=== PATIENT | male | born 1950 | race Caucasian/White ===

== ENCOUNTER 2016-09-18 17:27 | Observation (INO) | payer OTHER ==
[~2016-09-18] VITALS: Ht 167.6 cm; Wt 118.0 kg
--- NOTE | 2016-09-18 19:22 | DIAGNOSTIC IMAGING REPORT ---
PROCEDURE: XR CHEST 1 VIEW INDICATION: CHEST PAIN, initial encounter TECHNIQUE: Portable AP view 07:07 p.m. COMPARISON: Chest x-ray 10/05/2014 FINDINGS: Lungs are clear. Heart and mediastinum are normal. Thorax is normal. No significant interval change. IMPRESSION: 1. Negative chest.
--- NOTE | 2016-09-18 21:19 | ED NURSING NOTES ---
Clinical Report - Nurses [facility] [address] [place] [address] 09/18/2016 17:30 Patient: FRANDY MOROCHO TRIAGE Triage time 17:33. Acuity: LEVEL 3. Chief Complaint: CHEST PAIN and (and left arm numbness). Alert. --17:37 Frank Dinh R.N. 17:32 09/18/16. HR: 111. RR: 20. O2 saturation: 98%. Pain level now: 04/17. --17:37 Frank Dinh R.N. 17:50 09/18/16. BP: 155/87. --17:52 Frank Dinh R.N. Weight: 122.4 kg stated. Height/Length: 66 inches Per Patient. BMI: 43.6. --17:32 Frank Dinh R.N. Medications Albuterol Sulfate Inhalation neb, 4xdaily. AmLODIPine Besylate Oral (Tablet 10 mg) 1 tablet, daily. Aspirin Oral (Tablet 325 mg) 1 tablet, daily. Atorvastatin Calcium Oral (Tablet 40 mg) 1 tablet, daily. Cialis Oral, as needed. Combivent Inhalation 2 puffs, daily. Fluoxetine HCl Oral 60mg, daily. --17:57 Frank Dinh R.N. HydrALAZINE HCl Oral (Tablet 10 mg) 1 tablet, 2xdaily. Hydrochlorothiazide Oral 25 mg, daily. Iisinopril 40mg, daily. Levemir Subcutaneous 50units, 2xdaily. Levothyroxine Sodium Oral (Tablet 100 mcg) 1 tablet, daily. Multivitamins Oral. NovoLOG Subcutaneous, 3xdaily (sliding scale). Onasi, daily. Symbicort Inhalation, 2xdaily. --17:57 Frank Dinh R.N. Allergies No Known Drug Allergy. --17:33 Frank Dinh R.N. NKDA. --17:57 Frank Dinh R.N. History Primary physician (Bert). Onset. (1 hour ago). ( pain is sharp stabbing in chest). PAST MEDICAL HX: Diabetes mellitus. Hypertension. Asthma. SOCIAL HX: Former smoker, end date 1999. Alcohol use; consumes six beers a week. No drug use. FALL RISK ASSESSMENT: Fall risk assessment completed. No fall risk identified. LEARNING NEEDS ASSESSMENT: The learning needs assessment revealed no barriers. --17:37 Frank Dinh R.N. ( Patient with history of asthma, DM and Hypertension. States sharp stabbing pain in left chest began 1 hour ago associated with tingling in left arm and the feeling that his heart was racing. States pain was 8/10 (still is). Patient placed on O2 at 2 and all monitors applied. IV SL started in left arm and blood sent for lab studies). --18:00 Frank Dinh R.N. Interventions ID band on patient. To room. --17:37 Frank Dinh R.N. PHYSICAL ASSESSMENT 17:37 09/18/16. Patient gowned. GENERAL / NEURO / PSYCH: Alert. Oriented X 4. RESPIRATORY: Respirations not labored. --17:37 Frank Dinh R.N. Ambulatory to room. Patient gowned. GENERAL / NEURO / PSYCH: Alert. Oriented X 4. Appears in no acute distress. RESPIRATORY: Respirations not labored. Chest wall tenderness. Breath sounds within normal limits. CVS: Cardiac rhythm: sinus tachycardia. GI / : Abdomen soft and nontender. EXTREMITIES: No lower extremity edema. SKIN: Skin is warm and dry. --18:01 Frank Dinh R.N. NURSING PROGRESS NOTES EKG time: (1740). EKG was ordered, performed by a tech and shown to the ED physician. --17:50 Ibis Rajan ER Tech1 17:51 09/18/2016 Site #1 started via IV in the left forearm with an 20g angiocath; one attempt. Blood drawn: rainbow set. Labeled in the presence of the patient and sent to the lab. Saline lock flushed with 10 mL saline. --18:02 Frank Dinh R.N. Two patient identifiers checked. Call light placed in reach. Bed placed in lowest position. Patient ready for evaluation- chart flagged. --18:02 Frank Dinh R.N. Cardiac rhythm: sinus tachycardia. --18:40 Frank Dinh R.N. 18:39 09/18/16. BP: 128/62. HR: 100. RR: 17. O2 saturation: 98%. Pain level now 12/16. --18:40 Frank Dinh R.N. Care transferred and report given. --19:19 Frank Dinh R.N. 19:45 09/18/16. BP: 127/67. HR: 101. RR: 18. O2 saturation: 99%. Pain level now: 0. --19:46 Ector Cifuentes R.N. 20:16 09/18/2016 Aspirin PO 325 mg given. Allergies verified and confirmed 5 rights. --20:16 Mindy Recio R.N. ( [place], lights turned down.). --20:21 Mindy Recio R.N. 21:15 09/18/16. BP: 157/76. HR: 94. RR: 16. O2 saturation: 95%. --21:19 Ector Cifuentes R.N. DISPOSITION / DISCHARGE 22:09/18/16. BP: 178/99. HR: 103. RR: 16. O2 saturation: 99% on nasal cannula at 2 liters/minute. Pain level now: 0. --22:12 Ector Cifuentes R.N. Departure time: 2209. --22:15 Ector Cifuentes R.N. <<STRICKEN ENTRY-- 22:05 09/18/16. BP: 178/99. HR: 101. RR: 18. O2 saturation: 95% on nasal cannula at 2 liters/minute. Temp: 98.8 F (oral). Pain level now: 0. --03:14 Ector Cifuentes R.N. --END STRIKE>> Correction. --03:15 Ector Cifuentes R.N. 22:10. Admitted to Acute Care. Transported via stretcher by nurse with O2 (IV access). Patient's personal items; items were placed in belongings bag and transported with the patient. --03:16 Ector Cifuentes R.N. 22:09/18/16. Temp: 98.8 F (oral). --03:18 Ector Cifuentes R.N. Locked/Released at 09/19/2016 3:18 by Ector Cifuentes R.N.
--- NOTE | 2016-09-18 21:19 | ED CLINICAL REPORT ---
Clinical Report - Physicians/Mid Levels [facility] [address] [place] [address] 09/18/2016 17:30 Patient: FRANDY MOROCHO Time Seen: 17:37; initial patient contact. Arrived- By private vehicle. HISTORY OF PRESENT ILLNESS Chief Complaint: CHEST PAIN. At its maximum, severity described as moderate. When seen in the E.D., severity described as moderate. This started just prior to arrival and is still present. Onset during rest. It is described as pressure and it is described as located in the central chest area and radiating to the left arm. No nausea, vomiting, difficulty breathing or diaphoresis. Similar symptoms previously: None. Recent medical care: Not recently seen/assessed. REVIEW OF SYSTEMS No fever, chills, cough, pedal edema or calf pain. All systems otherwise negative, except as recorded above. PAST HISTORY Diabetes mellitus. Hypertension. Asthma. Immunizations: up-to-date. SURGERY HX: Adenoidectomy. Carpal tunnel surgery. Tonsillectomy. Vasectomy. (cyst removal from knee).. Medications: HydrALAZINE HCl Oral (Tablet 10 mg) 1 tablet, 2xdaily. Hydrochlorothiazide Oral 25 mg, daily. Iisinopril 40mg, daily. Levemir Subcutaneous 50units, 2xdaily. Levothyroxine Sodium Oral (Tablet 100 mcg) 1 tablet, daily. Multivitamins Oral. NovoLOG Subcutaneous, 3xdaily (sliding scale). Onasi, daily. Symbicort Inhalation, 2xdaily. Albuterol Sulfate Inhalation neb, 4xdaily. AmLODIPine Besylate Oral (Tablet 10 mg) 1 tablet, daily. Aspirin Oral (Tablet 325 mg) 1 tablet, daily. Atorvastatin Calcium Oral (Tablet 40 mg) 1 tablet, daily. Cialis Oral, as needed. Combivent Inhalation 2 puffs, daily. Fluoxetine HCl Oral 60mg, daily. Allergies: NKDA. No Known Drug Allergy. SOCIAL HISTORY Former smoker. Occasional alcohol use. No drug use. ADDITIONAL NOTES The nursing notes have been reviewed with agreement regarding the chief complaint, PMH and patient medications and allergies. PHYSICAL EXAM Vital Signs: 09/18/2016 17:50 BP: 155/87. 09/18/2016 17:32 HR: 111. RR: 20. O2 saturation: 98%. Pain level now: 04/17. Have been reviewed. Hypertensive. Tachycardic. Respiratory rate normal. Temperature normal. Oxygen saturation normal. Appearance: Alert. Oriented X3. No acute distress. Eyes: Eyes normal inspection. ENT: Pharynx normal. Neck: Normal inspection. No JVD. CVS: Normal heart rate and rhythm. Heart sounds normal. Respiratory: No respiratory distress. Breath sounds normal. Abdomen: Soft and nontender. Bowel sounds normal. Skin: Skin warm and dry. Normal skin color. Extremities: No calf tenderness. No lower extremity edema. Neuro: Oriented X 3. LABS, X-RAYS, AND EKG EKG: EKG time: (1737). Narrow-complex tachycardia (ventricular rate 113). Sinus tachycardia. Normal P waves. Normal CASIE. Normal QRS complex. 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 Normal ST and T waves. Prolonged QTc (477). EKG unchanged when compared with prior EKG. 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 The study has been interpreted contemporaneously by me. The study has been independently viewed by me. The EKG appears to be a good tracing. Interpretation time: 1737. Chest X-ray: No acute disease. Normal lung markings present. No infiltrate. Views: AP. Technique: good. The X-rays were independently viewed by me and interpreted contemporaneously by me. Interpretation time: 1914. Laboratory Tests: CBC w Diff: (MANJEET: 09/18/2016 17:45) ( MsgRcvd 09/18/2016 19:12) Final results Test Result Flag Units (Reference) WHITE BLOOD COUNT 5.6 K/uL (4.5-11.5) RED BLOOD COUNT 4.44 L M/uL (4.50-5.90) HEMOGLOBIN 14.1 gm/dL (13.5-17.5) HEMATOCRIT 42.3 % (41.0-53.0) MEAN CELL VOLUME 95 fL (80-100) MEAN CORPUSCULAR HGB 32 pg (26-34) MEAN CORPUSCULAR HGB CONC 33 g/dL (31-37) RED CELL DISTRIBUTION WIDTH 12.6 % (11.6-14.8) PLATELET COUNT 165 K/uL (150-400) NEUTROPHIL % 53.8 % (50-75) LYMPH % 31.4 % (25-40) MONO % 7.3 % (3-14) EOSINOPHIL % 6.9 H % (0-4) BASOPHIL % 0.6 % (0-2) [id number]: (MANJEET: 09/18/2016 17:45) ( [facility] 09/18/[place] 19:45) Final results Test Result Flag Units (Reference) D-DIMER QUANTITATIVE 0.31 ug/mLFEU (0.27-0.52) The primary value of this quantitative assay relates toits negative predictive value (i.e. exclusion) of pulmonaryembolism/deep vein thrombosis/DIC.Elevated levels of d-dimer may also occur with:, age, cancer, inflammation, liver disease,post-op, infection, hematoma, coronary disease, peripheralarteriopathy, bleeding disorders and thrombolytic treatment.Results should be correlated with other clinical andradiological data.Testing Methodology: Latex Immunoassay BNP: (MANJEET: 09/18/2016 17:45) ( [facility] [place] 09/18/2016 19:37) Final results Test Result Flag Units (Reference) B-TYPE NATRIURETIC PEPTIDE 32.9 pg/ml (5-100) CHEM 13 PANEL: (MANJEET: 09/18/2016 17:45) ( [facility] [place] 09/18/2016 19:39) Final results Test Result Flag Units (Reference) GLUCOSE 208 H mg/dL (70-110) BUN 15 mg/dL (7-18) CREATININE 1.3 mg/dL (0.6-1.3) Estimated GFR 58.52 mL/min Estimated GFR- >60 mL/min Note: Persistent reduction over 3 months in eGFR<60 mL/min/1.73 m2 defines CKD. Patients with eGFR values>=60 mL/min/1.73 m2 may also have CKD if evidence ofpersistent proteinuria. Additional information may be foundat www.kidney.org. SODIUM 144 mmol/L (136-145) POTASSIUM 3.3 L mmol/L (3.5-5.1) CHLORIDE 106 mmol/L (98-107) CARBON DIOXIDE 30 mmol/L (21-32) CALCIUM 8.7 mg/dL (8.5-10.1) TOTAL PROTEIN 7.1 g/dL (6.4-8.2) ALBUMIN 3.5 g/dL (3.3-5.0) BILIRUBIN, TOTAL 0.7 mg/dL (0.0-1.0) ALKALINE PHOSPHATASE 80 U/L (46-116) AST (SGOT) 44 H U/L (15-37) ALT (SGPT) 69 U/L (12-78) CPK 338 H U/L (24-260) MAGNESIUM 1.7 L mg/dL (1.8-2.4) CK-MB 4.7 H ng/mL (0.5-3.2) %CKMB 1.4 % (0.0-4.0) TROPONIN I <0.05 ng/mL (0.00-1.5) TROPONIN REFERENCE RANGE:<0.1 NEGATIVE0.1-1.5 INDETERMINANT>1.5 POSITIVE . PROGRESS AND PROCEDURES Course of Care: 09/18/2016 21:15 BP: 157/76. HR: 94. RR: 16. O2 saturation: 95%. Vital Signs: have been reviewed. Hypertensive. Heart rate normal. Respiratory rate normal. Oxygen saturation normal. Discussed case with hospitalist, (call returned 21:[address] in obs to r/o.). Reviewed test results and need for additional work-up. Health care provider will see patient in hospital. Consult obtained from cardiology. call returned 21:05 Dr. Wolf, pt can be observed and ruled out, no need for stress test in hospital, can be done as an outpt if neg w/u. Observation orders written. Disposition: Observation in Acute Care. Condition: stable. CLINICAL IMPRESSION Precordial chest pain characterized as "tightness" .12 lead EKG performed. Uncontrolled essential hypertension. INSTRUCTIONS Follow-up: Blood pressure screening was not performed during this visit because the patient has an active diagnosis of hypertension. The patient was admitted and blood pressure will be managed during the admission. (Electronically signed by Rell Alan Dr. 09/18/2016 21:25)
--- NOTE | 2016-09-18 21:19 | ED ORDER SUMMARY ---
..... Patient: FRANDY MOROCHO OrderSheet [facility] VisitID: [id number] [place] [address] 66y, M Registration Date/Time: 09/18/2016 ORDER SHEET Weight: 122.4 kg (stated) Allergies: No Known Drug Allergy, NKDA GENERAL ORDERS: Chest 1V Urgent (18:59 09/18/2016 Stephane Hardy) (Ack 19:01 NHouse ER Tech1) (19:15 MCampbell) Cardiac Panel Stat (19:00 09/18/2016 Stephane Hardy) (Ack 19:01 NHouse ER Tech1) (19:59 NHouse ER Tech1) BNP Urgent (19:00 09/18/2016 Stephane Hardy) (Ack 19:01 NHouse ER Tech1) (19:59 NHouse ER Tech1) D-Dimer Urgent (19:00 09/18/2016 Stephane Hardy) (Ack 19:01 NHouse ER Tech1) (19:59 NHouse ER Tech1) MEDICATION ORDERS: Aspirin PO 325 mg (Do not crush or chew, NOW) (18:59 09/18/2016 Stephane Hardy) (20:16 Bryn Palumbo.Elaine) IV FLUIDS: IV Saline Lock (19:00 09/18/2016 Stephane Hardy) (20:16 Bryn Palumbo.Elaine) ORDER SHEET NOTES: [Electronically signed by Rell Alan Dr. (21:25 09/18/2016)] [Electronically signed by Ector Cifuentes R.N. (03:18 09/19/2016)] [Electronically locked/signed by Ector Cifuentes R.N. (03:18 09/19/2016)]
--- NOTE | 2016-09-18 21:19 | ED CLINICAL REPORT ---
Clinical Report - Physicians/Mid Levels [facility] [address] [place] [address] 09/18/2016 17:30 Patient: FRANDY MOROCHO Time Seen: 17:37; initial patient contact. Arrived- By private vehicle. HISTORY OF PRESENT ILLNESS Chief Complaint: CHEST PAIN. At its maximum, severity described as moderate. When seen in the E.D., severity described as moderate. This started just prior to arrival and is still present. Onset during rest. It is described as pressure and it is described as located in the central chest area and radiating to the left arm. No nausea, vomiting, difficulty breathing or diaphoresis. Similar symptoms previously: None. Recent medical care: Not recently seen/assessed. REVIEW OF SYSTEMS No fever, chills, cough, pedal edema or calf pain. All systems otherwise negative, except as recorded above. PAST HISTORY Diabetes mellitus. Hypertension. Asthma. Immunizations: up-to-date. SURGERY HX: Adenoidectomy. Carpal tunnel surgery. Tonsillectomy. Vasectomy. (cyst removal from knee).. Medications: HydrALAZINE HCl Oral (Tablet 10 mg) 1 tablet, 2xdaily. Hydrochlorothiazide Oral 25 mg, daily. Iisinopril 40mg, daily. Levemir Subcutaneous 50units, 2xdaily. Levothyroxine Sodium Oral (Tablet 100 mcg) 1 tablet, daily. Multivitamins Oral. NovoLOG Subcutaneous, 3xdaily (sliding scale). Onasi, daily. Symbicort Inhalation, 2xdaily. Albuterol Sulfate Inhalation neb, 4xdaily. AmLODIPine Besylate Oral (Tablet 10 mg) 1 tablet, daily. Aspirin Oral (Tablet 325 mg) 1 tablet, daily. Atorvastatin Calcium Oral (Tablet 40 mg) 1 tablet, daily. Cialis Oral, as needed. Combivent Inhalation 2 puffs, daily. Fluoxetine HCl Oral 60mg, daily. Allergies: NKDA. No Known Drug Allergy. SOCIAL HISTORY Former smoker. Occasional alcohol use. No drug use. ADDITIONAL NOTES The nursing notes have been reviewed with agreement regarding the chief complaint, PMH and patient medications and allergies. PHYSICAL EXAM Vital Signs: 09/18/2016 17:50 BP: 155/87. 09/18/2016 17:32 HR: 111. RR: 20. O2 saturation: 98%. Pain level now: 04/17. Have been reviewed. Hypertensive. Tachycardic. Respiratory rate normal. Temperature normal. Oxygen saturation normal. Appearance: Alert. Oriented X3. No acute distress. Eyes: Eyes normal inspection. ENT: Pharynx normal. Neck: Normal inspection. No JVD. CVS: Normal heart rate and rhythm. Heart sounds normal. Respiratory: No respiratory distress. Breath sounds normal. Abdomen: Soft and nontender. Bowel sounds normal. Skin: Skin warm and dry. Normal skin color. Extremities: No calf tenderness. No lower extremity edema. Neuro: Oriented X 3. LABS, X-RAYS, AND EKG EKG: EKG time: (1737). Narrow-complex tachycardia (ventricular rate 113). Sinus tachycardia. Normal P waves. Normal CASIE. Normal QRS complex. 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 Normal ST and T waves. Prolonged QTc (477). EKG unchanged when compared with prior EKG. 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 The study has been interpreted contemporaneously by me. The study has been independently viewed by me. The EKG appears to be a good tracing. Interpretation time: 1737. Chest X-ray: No acute disease. Normal lung markings present. No infiltrate. Views: AP. Technique: good. The X-rays were independently viewed by me and interpreted contemporaneously by me. Interpretation time: 1914. Laboratory Tests: CBC w Diff: (MANJEET: 09/18/2016 17:45) ( MsgRcvd 09/18/2016 19:12) Final results Test Result Flag Units (Reference) WHITE BLOOD COUNT 5.6 K/uL (4.5-11.5) RED BLOOD COUNT 4.44 L M/uL (4.50-5.90) HEMOGLOBIN 14.1 gm/dL (13.5-17.5) HEMATOCRIT 42.3 % (41.0-53.0) MEAN CELL VOLUME 95 fL (80-100) MEAN CORPUSCULAR HGB 32 pg (26-34) MEAN CORPUSCULAR HGB CONC 33 g/dL (31-37) RED CELL DISTRIBUTION WIDTH 12.6 % (11.6-14.8) PLATELET COUNT 165 K/uL (150-400) NEUTROPHIL % 53.8 % (50-75) LYMPH % 31.4 % (25-40) MONO % 7.3 % (3-14) EOSINOPHIL % 6.9 H % (0-4) BASOPHIL % 0.6 % (0-2) [id number]: (MANJEET: 09/18/2016 17:45) ( [facility] [place]/18[facility] 19:45) Final results Test Result Flag Units (Reference) D-DIMER QUANTITATIVE 0.31 ug/mLFEU (0.27-0.52) The primary value of this quantitative assay relates toits negative predictive value (i.e. exclusion) of pulmonaryembolism/deep vein thrombosis/DIC.Elevated levels of d-dimer may also occur with:, age, cancer, inflammation, liver disease,post-op, infection, hematoma, coronary disease, peripheralarteriopathy, bleeding disorders and thrombolytic treatment.Results should be correlated with other clinical andradiological data.Testing Methodology: Latex Immunoassay BNP: (MANJEET: 09/18/2016 17:45) ( [facility] 09/18/2016 19:37) Final results Test Result Flag Units (Reference) B-TYPE NATRIURETIC PEPTIDE 32.9 pg/ml (5-100) CHEM 13 PANEL: (MANJEET: 09/18/2016 17:45) ( [facility] 09/18/2016 19:39) Final results Test Result Flag Units (Reference) GLUCOSE 208 H mg/dL (70-110) BUN 15 mg/dL (7-18) CREATININE 1.3 mg/dL (0.6-1.3) Estimated GFR 58.52 mL/min Estimated GFR- >60 mL/min Note: Persistent reduction over 3 months in eGFR<60 mL/min/1.73 m2 defines CKD. Patients with eGFR values>=60 mL/min/1.73 m2 may also have CKD if evidence ofpersistent proteinuria. Additional information may be foundat www.kidney.org. SODIUM 144 mmol/L (136-145) POTASSIUM 3.3 L mmol/L (3.5-5.1) CHLORIDE 106 mmol/L (98-107) CARBON DIOXIDE 30 mmol/L (21-32) CALCIUM 8.7 mg/dL (8.5-10.1) TOTAL PROTEIN 7.1 g/dL (6.4-8.2) ALBUMIN 3.5 g/dL (3.3-5.0) BILIRUBIN, TOTAL 0.7 mg/dL (0.0-1.0) ALKALINE PHOSPHATASE 80 U/L (46-116) AST (SGOT) 44 H U/L (15-37) ALT (SGPT) 69 U/L (12-78) CPK 338 H U/L (24-260) MAGNESIUM 1.7 L mg/dL (1.8-2.4) CK-MB 4.7 H ng/mL (0.5-3.2) %CKMB 1.4 % (0.0-4.0) TROPONIN I <0.05 ng/mL (0.00-1.5) TROPONIN REFERENCE RANGE:<0.1 NEGATIVE0.1-1.5 INDETERMINANT>1.5 POSITIVE . PROGRESS AND PROCEDURES Course of Care: 09/18/2016 21:15 BP: 157/76. HR: 94. RR: 16. O2 saturation: 95%. Vital Signs: have been reviewed. Hypertensive. Heart rate normal. Respiratory rate normal. Oxygen saturation normal. Discussed case with hospitalist, (call returned 21:[address] in obs to r/o.). Reviewed test results and need for additional work-up. Health care provider will see patient in hospital. Consult obtained from cardiology. call returned 21:05 Dr. Wolf, pt can be observed and ruled out, no need for stress test in hospital, can be done as an outpt if neg w/u. Observation orders written. Disposition: Observation in Acute Care. Condition: stable. CLINICAL IMPRESSION Precordial chest pain characterized as "tightness" .12 lead EKG performed. Uncontrolled essential hypertension. INSTRUCTIONS Follow-up: Blood pressure screening was not performed during this visit because the patient has an active diagnosis of hypertension. The patient was admitted and blood pressure will be managed during the admission. (Electronically signed by Rell Alan Dr. 09/18/2016 21:25)
--- NOTE | 2016-09-18 21:19 | ED NURSING NOTES ---
Clinical Report - Nurses [facility] [address] [place] [address] 09/18/2016 17:30 Patient: FRANDY MOROCHO TRIAGE Triage time 17:33. Acuity: LEVEL 3. Chief Complaint: CHEST PAIN and (and left arm numbness). Alert. --17:37 Frank Dinh R.N. 17:32 09/18/16. HR: 111. RR: 20. O2 saturation: 98%. Pain level now: 04/17. --17:37 Frank Dinh R.N. 17:50 09/18/16. BP: 155/87. --17:52 Frank Dinh R.N. Weight: 122.4 kg stated. Height/Length: 66 inches Per Patient. BMI: 43.6. --17:32 Frank Dinh R.N. Medications Albuterol Sulfate Inhalation neb, 4xdaily. AmLODIPine Besylate Oral (Tablet 10 mg) 1 tablet, daily. Aspirin Oral (Tablet 325 mg) 1 tablet, daily. Atorvastatin Calcium Oral (Tablet 40 mg) 1 tablet, daily. Cialis Oral, as needed. Combivent Inhalation 2 puffs, daily. Fluoxetine HCl Oral 60mg, daily. --17:57 Frank Dinh R.N. HydrALAZINE HCl Oral (Tablet 10 mg) 1 tablet, 2xdaily. Hydrochlorothiazide Oral 25 mg, daily. Iisinopril 40mg, daily. Levemir Subcutaneous 50units, 2xdaily. Levothyroxine Sodium Oral (Tablet 100 mcg) 1 tablet, daily. Multivitamins Oral. NovoLOG Subcutaneous, 3xdaily (sliding scale). Onasi, daily. Symbicort Inhalation, 2xdaily. --17:57 Frank Dinh R.N. Allergies No Known Drug Allergy. --17:33 Frank Dinh R.N. NKDA. --17:57 Frank Dinh R.N. History Primary physician (eBrt). Onset. (1 hour ago). ( pain is sharp stabbing in chest). PAST MEDICAL HX: Diabetes mellitus. Hypertension. Asthma. SOCIAL HX: Former smoker, end date 1999. Alcohol use; consumes six beers a week. No drug use. FALL RISK ASSESSMENT: Fall risk assessment completed. No fall risk identified. LEARNING NEEDS ASSESSMENT: The learning needs assessment revealed no barriers. --17:37 Frank Dinh R.N. ( Patient with history of asthma, DM and Hypertension. States sharp stabbing pain in left chest began 1 hour ago associated with tingling in left arm and the feeling that his heart was racing. States pain was 8/10 (still is). Patient placed on O2 at 2 and all monitors applied. IV SL started in left arm and blood sent for lab studies). --18:00 Frank Dinh R.N. Interventions ID band on patient. To room. --17:37 Frank Dinh R.N. PHYSICAL ASSESSMENT 17:37 09/18/16. Patient gowned. GENERAL / NEURO / PSYCH: Alert. Oriented X 4. RESPIRATORY: Respirations not labored. --17:37 Frank Dinh R.N. Ambulatory to room. Patient gowned. GENERAL / NEURO / PSYCH: Alert. Oriented X 4. Appears in no acute distress. RESPIRATORY: Respirations not labored. Chest wall tenderness. Breath sounds within normal limits. CVS: Cardiac rhythm: sinus tachycardia. GI / : Abdomen soft and nontender. EXTREMITIES: No lower extremity edema. SKIN: Skin is warm and dry. --18:01 Frank Dinh R.N. NURSING PROGRESS NOTES EKG time: (1740). EKG was ordered, performed by a tech and shown to the ED physician. --17:50 Ibis Rajan ER Tech1 17:51 09/18/2016 Site #1 started via IV in the left forearm with an 20g angiocath; one attempt. Blood drawn: rainbow set. Labeled in the presence of the patient and sent to the lab. Saline lock flushed with 10 mL saline. --18:02 Frank Dinh R.N. Two patient identifiers checked. Call light placed in reach. Bed placed in lowest position. Patient ready for evaluation- chart flagged. --18:02 Frank Dinh R.N. Cardiac rhythm: sinus tachycardia. --18:40 Frank Dinh R.N. 18:39 09/18/16. BP: 128/62. HR: 100. RR: 17. O2 saturation: 98%. Pain level now 12/16. --18:40 Frank Dinh R.N. Care transferred and report given. --19:19 Frank Dinh R.N. 19:45 09/18/16. BP: 127/67. HR: 101. RR: 18. O2 saturation: 99%. Pain level now: 0. --19:46 Ector Cifuentes R.N. 20:16 09/18/2016 Aspirin PO 325 mg given. Allergies verified and confirmed 5 rights. --20:16 Mindy Recio R.N. ( [place], lights turned down.). --20:21 Mindy Recio R.N. 21:15 09/18/16. BP: 157/76. HR: 94. RR: 16. O2 saturation: 95%. --21:19 Ector Cifuentes R.N. DISPOSITION / DISCHARGE 22:09/18/16. BP: 178/99. HR: 103. RR: 16. O2 saturation: 99% on nasal cannula at 2 liters/minute. Pain level now: 0. --22:12 Ector Cifuentes R.N. Departure time: 2209. --22:15 Ector Cifuentes R.N. <<STRICKEN ENTRY-- 22:05 09/18/16. BP: 178/99. HR: 101. RR: 18. O2 saturation: 95% on nasal cannula at 2 liters/minute. Temp: 98.8 F (oral). Pain level now: 0. --03:14 Ector Cifuentes R.N. --END STRIKE>> Correction. --03:15 Ector Cifuentes R.N. 22:10. Admitted to Acute Care. Transported via stretcher by nurse with O2 (IV access). Patient's personal items; items were placed in belongings bag and transported with the patient. --03:16 Ector Cifuentes R.N. 22:09/18/16. Temp: 98.8 F (oral). --03:18 Ector Cifuentes R.N. Locked/Released at 09/19/2016 3:18 by Ector Cifuentes R.N.
--- NOTE | 2016-09-18 21:19 | ED ORDER SUMMARY ---
..... Patient: FRANDY MOROCHO OrderSheet [facility] VisitID: [id number] [place] [address] 66y, M Registration Date/Time: 09/18/2016 ORDER SHEET Weight: 122.4 kg (stated) Allergies: No Known Drug Allergy, NKDA GENERAL ORDERS: Chest 1V Urgent (18:59 09/18/2016 Stephane Hardy) (Ack 19:01 NHouse ER Tech1) (19:15 MCampbell) Cardiac Panel Stat (19:00 09/18/2016 Stephane Hardy) (Ack 19:01 NHouse ER Tech1) (19:59 NHouse ER Tech1) BNP Urgent (19:00 09/18/2016 Stephane Hardy) (Ack 19:01 NHouse ER Tech1) (19:59 NHouse ER Tech1) D-Dimer Urgent (19:00 09/18/2016 Stephane Hardy) (Ack 19:01 NHouse ER Tech1) (19:59 NHouse ER Tech1) MEDICATION ORDERS: Aspirin PO 325 mg (Do not crush or chew, NOW) (18:59 09/18/2016 Stephane Hardy) (20:16 Bryn Palumbo.Elaine) IV FLUIDS: IV Saline Lock (19:00 09/18/2016 Stephane Hardy) (20:16 Bryn Palumbo.Elaine) ORDER SHEET NOTES: [Electronically signed by Rell Alan Dr. (21:25 09/18/2016)] [Electronically signed by Ector Cifuentes R.N. (03:18 09/19/2016)] [Electronically locked/signed by Ector Cifuentes R.N. (03:18 09/19/2016)]
[2016-09-18 22:41] VITALS: BP 198/91
[2016-09-18] MEDS ORDERED: AMLODIPINE BESY10 MG PO (22:51)
[2016-09-18] MEDS ORDERED: ASPIRIN325 MG PO (22:51)
[2016-09-18] MEDS ORDERED: ALBUTEROL2.5 MG/3 M IN (22:51)
[2016-09-18] MEDS ORDERED: CIALIS5 MG PO (22:52)
[2016-09-18] MEDS ORDERED: ATORVASTATIN CA40 MG PO (22:52)
[2016-09-18] MEDS ORDERED: IPRATROPIUM BR0.02 % IN (22:53)
[2016-09-18] MEDS ORDERED: HYDROCHLOROTHIA25 MG PO (22:54)
[2016-09-18] MEDS ORDERED: FLUOXETINE HCL60 MG PO (22:54)
[2016-09-18] MEDS ORDERED: HYDRALAZINE HCL10 MG PO (22:54)
[2016-09-18] MEDS ORDERED: LISINOPRIL10 MG PO (22:55)
[2016-09-18] MEDS ORDERED: LEVEMIR FL100 UNIT/M SC (22:55)
[2016-09-18] MEDS ORDERED: LEVOTHYROXINE100 MCG PO (22:56)
[2016-09-18] MEDS ORDERED: NOVOLOG PE100 UNITS/ (22:56)
[2016-09-18] MEDS ORDERED: MULTIPLE VITAMIN PO (22:56)
[2016-09-18] MEDS ORDERED: SYMBICORT1 AE1 (22:57)
--- NOTE | 2016-09-18 23:35 | Progress Note ---
Subjective General Admission History and Physical Examination Patient Name: Joe Rodriguez Admission Date: September 18, 2016 Primary Care Provider: Luan Noel M.D. Attending Physician: Robert Fung M.D. Admitting Physician: Robert Fung M.D. SUBJECTIVE Historian: Patient Reliability: Good Chief Complaint: Chest pain History of Present Illness: The patient is a 66-year-old white male with a significant past mental history of type 2 diabetes mellitus, hypertension, COPD, hypothyroidism, hyperlipidemia, depression, who presented to [facility] emergency department on the day of admission secondary to complaints of chest pain. [facility] ER evaluation was consistent with chest pain rule out ACS. Secondary to the above, the patient was admitted by Robert Fung M.D. for further evaluation and treatment The history of present illness began on the day of admission when the patient developed centralized chest pressure/pain. This radiated into the left arm. It was unassociated with nausea, vomiting, shortness of breath, or diaphoresis. The pain was stated to be exacerbated by chest wall movement and deep breathing in the central chest area. This was not sharp. He denied palpitations. Secondary to the above he presented to [facility] emergency department for further evaluation and treatment. Evaluation at [facility] emergency department showed the patient to have vital signs of blood pressure 155/87, pulse 111, respirations 20 , temperature not recorded, O2 sat room air 98%. Physical exam was noncontributory. Laboratory evaluation showed normal troponin with mild elevation of CPK with normal CPK-MB percent. Chest x-ray was unremarkable. EKG showed no acute ST-T wave changes. Secondary to the patient's history he was admitted with a diagnosis of chest pain rule out ACS for further evaluation and treatment PAST MEDICAL HISTORY Illnesses: 1. Diabetes mellitus type 2 2. Hypertension 3. Asthma/COPD 4. Hypertension 5. Hyperlipidemia 6. Hepatitis C 7. Depression 8. Hypothyroidism 9. Gout 10. Sleep apnea Allergies: 1. No known drug allergies Medications: 1. Hydralazine 10 mg by mouth twice a day 2. Hydrochlorothiazide 25 mg by mouth daily 3. Lisinopril 40 mg by mouth daily 4. Levemir insulin 15 subcutaneous twice a day 5. Synthroid 0.1 mg by mouth daily 6. Multivitamin one by mouth daily 7. NovoLog insulin before meals based on sliding scale 8. Symbicort 1 inhalation twice a day 9. Norvasc 10 mg by mouth daily 10. Albuterol neb 4 times a day 11. Lipitor 40 mg by mouth daily 12. Aspirin 325 mg by mouth daily 13. [place] when necessary 14. Combivent 2 inhalations 4 times a day 15. Fluoxetine 60 mg by mouth daily 16. Onasi, daily. Surgery: 1. Tonsillectomy 2. Knee surgery 3. [place] teeth extraction 4. Oral surgery 5. Cataract surgery 6. Bilateral carpal tunnel syndrome Injuries: 1. No significant Hospitalizations: 1. For above surgery and medical problems FAMILY HISTORY Parents: 1. Father, , 70, CVA, 2. Mother, , 70, stroke, valvular heart disease, diabetes mellitus Siblings: 1. The patient has 4 siblings 3 male, 1 female. History of heart disease, hypercholesterolemia, and asthma Children: 1. The patient has 7 children 6 female, one male. No significant medical problems Other significant family history: None SOCIAL HISTORY 1. Marital Status: 2. Oriental Orthodox: Orthodoxy-Congregation 3. Education: High school plus vocational education 4. 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 Occupational health exposures: Dust, asbestos, lead, mercury, loud noises, heavy lifting HABITS 1. Tobacco: Chews tobacco 2. Drugs: None 3. Alcohol: 8 ounces per week 4. Caffeine: One cup per day-coffee HEALTH SUPERVISION Item/Test 1. Not reviewed IMMUNIZATIONS: 1. Pneumococcal: 2015 2. Influenza: 2016 3. Tetanus: Unknown REVIEW OF SYSTEMS Remarkable for those things stated in the history of present illness and past medical history. Seventeen point review of system completed with the following notable findings: General: Weight gain, fatigue, chest pain, weakness Skin: Dryness, skin changes Eyes: Corrective lenses Ears: Hearing loss Nose: Chronic infection, nasal discharge Respiratory: Shortness of breath, wheezing, asthma/COPD Cardiovascular: Chest pain, hypertension, shortness of breath with exertion Genitourinary: Nocturia, poor urinary stream, erectile dysfunction Musculoskeletal: Back ache Neurological: Balance problems, memory loss, sensation changes Endocrine: Diabetes, thyroid problems, excessive urination Psychological: Depression, difficulty sleeping Physical Exam Vital Signs / I&Os Vital Signs Date Time Temp Pulse Resp B/P Pulse O2 O2 Flow FiO2 Ox Delivery Rate 09/18 2241 97.9 101 15 198/91 99 Room Air General Appearance Alert, Oriented X3, Cooperative, No acute distress Lungs Clear to auscultation, Normal air movement Neck Supple, No JVD, No masses Cardiovascular Regular rate and rhythm, Normal S1 and S2, grade 1/6 systolic murmur present. Pulses 2+/2 throughout. Abdomen Normal bowel sounds, Soft, No tenderness Extremities No cyanosis, No clubbing, No edema Neurological Cranial nerves intact, Strength 5/5 x4 ext's, No lateralizing signs Psych/Mental Status Mental status normal, Mood normal LAB Results Laboratory Tests 09/18 09/18 1745 1745 Chemistry Plasma Sodium (136 - 145 mmol/L) 144 Plasma Potassium (3.5 - 5.1 mmol/L) 3.3 Plasma Chloride (98 - 107 mmol/L) 106 CO2 (Enzymatic) (21 - 32 mmol/L) 30 BUN (7 - 18 mg/dL) 15 Creatinine (0.6 - 1.3 mg/dL) 1.3 Est GFR ( Amer) (mL/min) >60 Est GFR (Non-Af Amer) (mL/min) 58.52 Glucose (70 - 110 mg/dL) 208 Plasma Calcium (8.5 - 10.1 mg/dL) 8.7 Plasma Magnesium (1.8 - 2.4 mg/dL) 1.7 Total Bilirubin (0.0 - 1.0 mg/dL) 0.7 AST (15 - 37 U/L) 44 ALT (12 - 78 U/L) 69 Alkaline Phosphatase (46 - 116 U/L) 80 Creatine Kinase (24 - 260 U/L) 338 CK-MB (CK-2) (0.5 - 3.2 ng/mL) 4.7 CK/CKMB % Calc (0.0 - 4.0 %) 1.4 Troponin (0.00 - 1.5 ng/mL) <0.05 B-Natriuretic Peptide (5 - 100 pg/ml) 32.9 Total Protein (6.4 - 8.2 g/dL) 7.1 Albumin (3.3 - 5.0 g/dL) 3.5 Coagulation D-Dimer, Quantitative (0.27 - 0.52 ug/mLFEU) 0.31 Hematology WBC (4.5 - 11.5 K/uL) 5.6 RBC (4.50 - 5.90 M/uL) 4.44 Hgb (13.5 - 17.5 gm/dL) 14.1 Hct (41.0 - 53.0 %) 42.3 MCV (80 - 100 fL) 95 MCH (26 - 34 pg) 32 RDW (11.6 - 14.8 %) 12.6 Neut % (Auto) (50 - 75 %) 53.8 Lymph % (Auto) (25 - 40 %) 31.4 [place] % (Auto) (3 - 14 %) 7.3 Eos % (Auto) (0 - 4 %) 6.9 Baso % (Auto) (0 - 2 %) 0.6 Plt Count, EDTA (150 - 400 K/uL) 165 PUBS MCHC (31 - 37 g/dL) 33 Microbiology Date/Time Procedure - Status Source Growth 09/18 UNK MRSA Screen - ORD NOSE Imaging Chest X-Ray IMPRESSION: 1. Negative chest. Dictated by: SCAR JONES MD D: FABRIZIO;09/18/161920 Assessment and Plan Problem List 1. Chest pain Plan -Patient presents with atypical chest pain. -Chest pain definitely related to chest wall movement and breathing most likely represents musculoskeletal pain but cannot rule out ischemic component -Serial troponin/CPK/EKG -Toradol 30 mg IV every 6 hours -Nitro paste one-inch topically every 6 hours -Continue outpatient medical regimen with beta efren, amlodipine, ERVIN inhibitor. -Lovenox 40 mg subcutaneous daily 2. Hypertension Plan -Continue outpatient medical regimen -Low-salt diet -Monitor 3. Diabetes mellitus Status Chronic Onset Date Unknown Plan -Continue Lantus insulin -Humalog sliding scale -Monitor before meals and at bedtime blood sugar -Hemoglobin A1c in a.m. -Consistent carbohydrate diet 4. Hypokalemia Status Acute Onset Date Unknown Plan -Oral supplementation -KCl 40 mEq by mouth now -Recheck in a.m. 5. Hypomagnesemia Status Acute Onset Date Unknown Plan -Magnesium 2 g IV now -Slow-Mag one by mouth 3 times a day -Recheck in a.m. 6. Rhabdomyolysis Status Acute Onset Date Unknown Plan -Mild elevation of CPK -MB fraction within normal limits -IV fluid therapy -Monitor 7. Hyperlipidemia Status Chronic Onset Date Unknown Plan -Check lipid panel in a.m. -Continue Lipitor -Low-cholesterol/low-fat diet Current status: Fair, stable Anticipated discharge date: Anticipated discharge in a.m. Anticipated discharge placement: Home Patient care time: Time spent in chart review, patient interview, physical exam, CPOE, and care documentation: Greater than 70 minutes Visit to patient today: 1 Complexity of care: High E&M Codes Admission: Obsv-Comp/High/31115
[2016-09-19 02:08] VITALS: BP 138/62
--- NOTE | 2016-09-19 03:19 | ED MAR SUMMARY ---
..... Medication Administration Record [facility] [address] [place] [address] Patient: FRANDY MOROCHO Visit ID: [id number] 66y, M Weight: 122.4 kg Height/Length: 66 in BMI: 43.6 ALLERGIES: No Known Drug Allergy, NKDA Given 20:16 09/18/2016 Mindy Recio R.N. Medication Administered: ASPIRIN [PO], Dose: 325 mg PO. Medication Ordered: Aspirin PO 325 mg (Do not crush or chew, NOW).
--- NOTE | 2016-09-19 03:19 | ED MED RECONCILIATION SUMMARY ---
Patient: FRANDY MOROCHO Medication Reconciliation Report [facility] VisitID: [id number] [address] [place] [address] 66y, M Registration Date/Time: 09/18/2016 Weight: 122.4 kg Height/Length: 66 in. BMI: 43.6 ALLERGIES: NKDA, No Known Drug Allergy The patient's Home Medications are listed below: THE FOLLOWING MEDICATIONS NEED TO BE RECONCILED: Albuterol Sulfate Inhalation neb, 4xdaily AmLODIPine Besylate Oral (10 mg) 1 tablet, daily Aspirin Oral (325 mg) 1 tablet, daily Atorvastatin Calcium Oral (40 mg) 1 tablet, daily Cialis Oral Combivent Inhalation 2 puffs, daily Fluoxetine HCl Oral 60mg, daily HydrALAZINE HCl Oral (10 mg) 1 tablet, 2xdaily Hydrochlorothiazide Oral 25 mg, daily Iisinopril 40mg, daily Levemir Subcutaneous 50units, 2xdaily Levothyroxine Sodium Oral (100 mcg) 1 tablet, daily Multivitamins Oral NovoLOG Subcutaneous, 3xdaily, sliding scale Onasi, daily Symbicort Inhalation, 2xdaily The source(s) of the original Home Medication information: Not obtained. The following Medications were given to the patient in the Emergency Department: Aspirin [PO] PO 325 mg, administered: 09/18/2016 8:16:00 PM The following Medications were prescribed to the patient: None.
--- NOTE | 2016-09-19 03:19 | ED MAR SUMMARY ---
..... Medication Administration Record [facility] [address] [place] [address] Patient: FRANDY MOROCHO Visit ID: [id number] 66y, M Weight: 122.4 kg Height/Length: 66 in BMI: 43.6 ALLERGIES: No Known Drug Allergy, NKDA Given 20:16 09/18/2016 Mindy Recio R.N. Medication Administered: ASPIRIN [PO], Dose: 325 mg PO. Medication Ordered: Aspirin PO 325 mg (Do not crush or chew, NOW).
--- NOTE | 2016-09-19 03:19 | ED MED RECONCILIATION SUMMARY ---
Patient: FRANDY MOROCHO Medication Reconciliation Report [facility] VisitID: [id number] [address] [place] [address] 66y, M Registration Date/Time: 09/18/2016 Weight: 122.4 kg Height/Length: 66 in. BMI: 43.6 ALLERGIES: NKDA, No Known Drug Allergy The patient's Home Medications are listed below: THE FOLLOWING MEDICATIONS NEED TO BE RECONCILED: Albuterol Sulfate Inhalation neb, 4xdaily AmLODIPine Besylate Oral (10 mg) 1 tablet, daily Aspirin Oral (325 mg) 1 tablet, daily Atorvastatin Calcium Oral (40 mg) 1 tablet, daily Cialis Oral Combivent Inhalation 2 puffs, daily Fluoxetine HCl Oral 60mg, daily HydrALAZINE HCl Oral (10 mg) 1 tablet, 2xdaily Hydrochlorothiazide Oral 25 mg, daily Iisinopril 40mg, daily Levemir Subcutaneous 50units, 2xdaily Levothyroxine Sodium Oral (100 mcg) 1 tablet, daily Multivitamins Oral NovoLOG Subcutaneous, 3xdaily, sliding scale Onasi, daily Symbicort Inhalation, 2xdaily The source(s) of the original Home Medication information: Not obtained. The following Medications were given to the patient in the Emergency Department: Aspirin [PO] PO 325 mg, administered: 09/18/2016 8:16:00 PM The following Medications were prescribed to the patient: None.
--- NOTE | 2016-09-19 03:19 | ED DISCHARGE INSTRUCTIONS ---
Patient: FRANDY MOROCHO General Instructions [facility] VisitID: [id number] [address] [place] [address] 66y, M Registration Date/Time: 09/18/2016 Precordial chest pain characterized as "tightness" .12 lead EKG performed. Uncontrolled essential hypertension. INSTRUCTIONS Follow-up: Blood pressure screening was not performed during this visit because the patient has an active diagnosis of hypertension. The patient was admitted and blood pressure will be managed during the admission. (Electronically signed by Rell Alan Dr. 09/18/2016 21:25)
--- NOTE | 2016-09-19 03:19 | ED DISCHARGE INSTRUCTIONS ---
Patient: FRANDY MOROCHO General Instructions [facility] VisitID: [id number] [address] [place] [address] 66y, M Registration Date/Time: 09/18/2016 Precordial chest pain characterized as "tightness" .12 lead EKG performed. Uncontrolled essential hypertension. INSTRUCTIONS Follow-up: Blood pressure screening was not performed during this visit because the patient has an active diagnosis of hypertension. The patient was admitted and blood pressure will be managed during the admission. (Electronically signed by Rell Alan Dr. 09/18/2016 21:25)
[2016-09-19 06:39] VITALS: BP 146/77
--- NOTE | 2016-09-19 07:28 | Progress Note ---
Subjective General 66 Y.O male with DM, htn, obesity who was admitted for CP r/o [place]. Has neg labs. CP he states is much improved... likely chest wall pain. Has a SARABIA with chronic sinusitis. No fevers, no sob other than some wheezing chronic. Physical Exam Vital Signs / I&Os Vital Signs Date Time Temp Pulse Resp B/P Pulse O2 O2 Flow FiO2 Ox Delivery Rate 09/19 0639 98.4 70 17 146/77 97 Room Air 09/19 0208 97.9 70 17 138/62 98 Room Air 09/19 0000 Nasal 2.0 Cannula 09/18 2241 97.9 101 15 198/91 99 Room Air I&O 09/19 0000 09/18 1600 09/18 0800 Intake Total 0 Output Total Balance 0 General Appearance Alert, Oriented X3, Cooperative HEENT Normal exam Lungs occasional soft wheezing. Cardiovascular Regular rate and rhythm, No murmurs, gallops, rubs Abdomen Soft, No tenderness Extremities tr edema bilaterally LAB Results Laboratory Tests 09/19 09/19 09/19 09/19 09/18 0400 0030 0030 0030 1745 Chemistry Plasma Sodium (136 - 145 mmol/L) 141 Plasma Potassium (3.5 - 5.1 mmol/L) 3.7 Plasma Chloride (98 - 107 mmol/L) 107 CO2 (Enzymatic) (21 - 32 mmol/L) 27 BUN (7 - 18 mg/dL) 15 Creatinine (0.6 - 1.3 mg/dL) 1.3 Est GFR ( Amer) (mL/min) >60 Est GFR (Non-Af Amer) (mL/min) 58.52 Glucose (70 - 110 mg/dL) 166 Hemoglobin A1c % Cancelled Plasma Calcium (8.5 - 10.1 mg/dL) 8.2 Plasma Magnesium (1.8 - 2.4 mg/dL) 1.7 Total Bilirubin (0.0 - 1.0 mg/dL) 0.4 AST (15 - 37 U/L) 34 ALT (12 - 78 U/L) 59 Alkaline Phosphatase (46 - 116 U/L) 74 Creatine Kinase (24 - 260 U/L) 260 Troponin (0.00 - 1.5 ng/mL) <0.05 B-Natriuretic Peptide (5 - 100 pg/ml) 32.9 Total Protein (6.4 - 8.2 g/dL) 6.3 Albumin (3.3 - 5.0 g/dL) 3.0 Triglycerides (30 - 200 mg/dL) 470 Cholesterol (140 - 200 mg/dL) 184 LDL Cholesterol, Calc (mg/dL) 53 HDL Cholesterol (32 - 96 mg/dL) 37 LDL/HDL Ratio 1.4 Cholesterol/HDL Ratio 5.0 Coronary Risk Interp (0.4 - 1.0) 1.1 TSH 3rd Generation (0.30 - 3.74 uIU/mL) 3.715 09/18 1745 Chemistry Plasma Sodium (136 - 145 mmol/L) 144 Plasma Potassium (3.5 - 5.1 mmol/L) 3.3 Plasma Chloride (98 - 107 mmol/L) 106 CO2 (Enzymatic) (21 - 32 mmol/L) 30 BUN (7 - 18 mg/dL) 15 Creatinine (0.6 - 1.3 mg/dL) 1.3 Est GFR ( Amer) (mL/min) >60 Est GFR (Non-Af Amer) (mL/min) 58.52 Glucose (70 - 110 mg/dL) 208 Plasma Calcium (8.5 - 10.1 mg/dL) 8.7 Plasma Magnesium (1.8 - 2.4 mg/dL) 1.7 Total Bilirubin (0.0 - 1.0 mg/dL) 0.7 AST (15 - 37 U/L) 44 ALT (12 - 78 U/L) 69 Alkaline Phosphatase (46 - 116 U/L) 80 Creatine Kinase (24 - 260 U/L) 338 CK-MB (CK-2) (0.5 - 3.2 ng/mL) 4.7 CK/CKMB % Calc (0.0 - 4.0 %) 1.4 Troponin (0.00 - 1.5 ng/mL) <0.05 Total Protein (6.4 - 8.2 g/dL) 7.1 Albumin (3.3 - 5.0 g/dL) 3.5 Coagulation D-Dimer, Quantitative (0.27 - 0.52 ug/mLFEU) 0.31 Hematology WBC (4.5 - 11.5 K/uL) 5.6 RBC (4.50 - 5.90 M/uL) 4.44 Hgb (13.5 - 17.5 gm/dL) 14.1 Hct (41.0 - 53.0 %) 42.3 MCV (80 - 100 fL) 95 MCH (26 - 34 pg) 32 RDW (11.6 - 14.8 %) 12.6 Neut % (Auto) (50 - 75 %) 53.8 Lymph % (Auto) (25 - 40 %) 31.4 [place] % (Auto) (3 - 14 %) 7.3 Eos % (Auto) (0 - 4 %) 6.9 Baso % (Auto) (0 - 2 %) 0.6 Plt Count, EDTA (150 - 400 K/uL) 165 PUBS MCHC (31 - 37 g/dL) 33 Microbiology Date/Time Procedure - Status Source Growth 09/18 2230 MRSA Screen - RECD NOSE Assessment and Plan Problem List 1. Chest pain Plan No [place], will d/c home. SEems to be chest wall and f/u with PMD 2. Diabetes mellitus Status Chronic Onset Date Unknown Plan continue home meds 3. Hypertension Plan stable
--- NOTE | 2016-09-19 07:31 | Provider's Discharge Care Plan ---
Problem, Goal, Plan Problem List 1. Chest pain Instructions: Follow up as directed, Take meds as directed 2. Diabetes mellitus Instructions: Take meds as directed 3. Hypertension Instructions: Follow up as directed, discuss ENT eval for sinusitis in f/u
== END 2016-09-19 09:46 | disposition home or self-care (01) ==
LOC: ED SRH 17:27 → TRANS SRH 21:14 → CC SRH 22:10
PROVIDERS: ADMIT Family Medicine
DX: R07.2 Precordial pain (principal); E87.6 Hypokalemia; E83.42 Hypomagnesemia; M62.82 Rhabdomyolysis; I10 Essential (primary) hypertension; J32.9 Chronic sinusitis, unspecified; R51 Headache; E11.9 Type 2 diabetes mellitus without complications; Z79.4 Long term (current) use of insulin; J44.9 Chronic obstructive pulmonary disease, unspecified; E03.9 Hypothyroidism, unspecified; E78.5 Hyperlipidemia, unspecified; B18.2 Chronic viral hepatitis C
CPT/HCPCS: 29243; 29244; 29250; 29251; 85241; 90074; 90098; 90100; 90616; 90617; 91320; 91556; 92132; 92610; 92690; 92720; 93140; 95059